=== PATIENT | female | born 1960 ===

== ENCOUNTER 2025-05-04 07:26 | Outpatient (CLI) | payer OTHER ==
[~2025-05-04 07:26] MED LIST: CIPRO500 MG PO; DICY20TA PO; Flagyl PO; INTESTINEX1 CA1 PO; METFORMIN HCL500 MG; PRILOSEC20 MG; PROTONIX40 MG PO; SINGULAIR10 MG; VASOTEC5 MG PO; ZANTAC150 M3 PO
== END 2025-05-04 07:33 | disposition home or self-care (01) ==
LOC: RX STUDY 07:26
DX: R10.13 Epigastric pain (principal); R11.2 Nausea with vomiting, unspecified; R10.11 Right upper quadrant pain